=== PATIENT | male | born 1975 | race Caucasian/White ===

== ENCOUNTER → 2019-09-22 | Outpatient (CLI) | payer OTHER ==
[2019-09-22 07:47] LABS: HEMOGLOBIN 16.6 G/DL (13.3-17.7); MEAN PLATELET VOLUME 8.6 FL (7.4-10.4); RED CELL DISTRIBUTION WIDTH 13.4 % (10.0-14.5); WHITE BLOOD COUNT 6.3 10^3/uL (4.3-11.0)
[2019-09-22 07:52] LABS: ALBUMIN 4.3 GM/DL (3.2-4.5); CHLORIDE 105 MMOL/L (98-107); SODIUM 137 MMOL/L (135-145)
[2019-09-22 07:53] LABS: CALCIUM 9.4 MG/DL (8.5-10.1)
[2019-09-22 07:54] LABS: TRIGLYCERIDES 208 MG/DL (<150); VLDL CHOLESTEROL 42 MG/DL (5-40)
[2019-09-22 07:55] LABS: GLUCOSE 102 MG/DL (70-105); TOTAL PROTEIN 7.3 GM/DL (6.4-8.2)
[2019-09-22 07:56] LABS: CARBON DIOXIDE 21 MMOL/L (21-32)
[2019-09-22 07:57] LABS: BILIRUBIN,TOTAL 0.9 MG/DL (0.1-1.0)
[2019-09-22 07:58] LABS: ALKALINE PHOSPHATASE 66 U/L (40-136); CREATININE SERUM 1.13 MG/DL (0.60-1.30); GFR ESTIMATED > 60
[2019-09-22 07:59] LABS: CHOLESTEROL 246 MG/DL (< 200)
[2019-09-22 08:00] LABS: BUN/CREATININE RATIO 13
[2019-09-22 08:01] LABS: HDL CHOLESTEROL 38 MG/DL (40-60)
[2019-09-22 08:02] LABS: ALANINE AMINOTRANSFERASE 32 U/L (0-55)
== END ==
LOC: LAB 07:14
PROVIDERS: ATTEND Family Medicine
DX: I10 Essential (primary) hypertension (principal)
CPT/HCPCS: 36415; 80053; 80061; 85027

== ENCOUNTER → 2020-11-15 | Outpatient (CLI) | payer OTHER ==
[2020-11-15 09:10] LABS: ALBUMIN 4.1 GM/DL (3.2-4.5); CALCIUM 9.3 MG/DL (8.5-10.1); CREATININE SERUM 0.9 MG/DL (0.60-1.30)
== END ==
LOC: LAB 08:26
PROVIDERS: ATTEND Nurse Practitioner
DX: I10 Essential (primary) hypertension (principal); E78.2 Mixed hyperlipidemia
CPT/HCPCS: 36415; 80053; 80061

== ENCOUNTER → 2021-05-20 | Outpatient (CLI) | payer OTHER ==
[2021-05-20 07:44] LABS: ALBUMIN 4.3 GM/DL (3.2-4.5); POTASSIUM 4.2 MMOL/L (3.6-5.0)
[2021-05-20 07:45] LABS: CALCIUM 9.2 MG/DL (8.5-10.1)
[2021-05-20 07:47] LABS: TOTAL PROTEIN 7.1 GM/DL (6.4-8.2)
[2021-05-20 07:48] LABS: BILIRUBIN,TOTAL 1.1 MG/DL (0.1-1.0)
[2021-05-20 07:50] LABS: CREATININE SERUM 0.93 MG/DL (0.60-1.30)
== END ==
LOC: LAB 07:08
PROVIDERS: ATTEND Nurse Practitioner
DX: I10 Essential (primary) hypertension (principal); E78.2 Mixed hyperlipidemia
CPT/HCPCS: 36415; 80053; 80061

== ENCOUNTER → 2021-12-12 | Outpatient (CLI) | payer OTHER ==
[2021-12-12 06:55] LABS: ALBUMIN 4.2 GM/DL (3.2-4.5)
[2021-12-12 06:56] LABS: CALCIUM 9.1 MG/DL (8.5-10.1)
[2021-12-12 06:59] LABS: BILIRUBIN,TOTAL 0.9 MG/DL (0.1-1.0)
[2021-12-12 07:01] LABS: CREATININE SERUM 1.03 MG/DL (0.60-1.30)
== END ==
LOC: LAB 06:30
PROVIDERS: ATTEND Nurse Practitioner
DX: Z01.89 Encounter for other specified special examinations (principal)
CPT/HCPCS: 36415; 80053; 80061

== ENCOUNTER → 2022-06-13 | Outpatient (CLI) | payer OTHER ==
[2022-06-13 07:12] LABS: POTASSIUM 4.1 MMOL/L (3.6-5.0)
[2022-06-13 07:13] LABS: ALBUMIN 4.2 GM/DL (3.2-4.5)
[2022-06-13 07:14] LABS: CALCIUM 9.4 MG/DL (8.5-10.1)
[2022-06-13 07:15] LABS: TOTAL PROTEIN 7.1 GM/DL (6.4-8.2)
[2022-06-13 07:19] LABS: CREATININE SERUM 1.01 MG/DL (0.60-1.30)
== END ==
LOC: LAB 06:36
PROVIDERS: ATTEND Nurse Practitioner
DX: I10 Essential (primary) hypertension (principal); E78.2 Mixed hyperlipidemia
CPT/HCPCS: 36415; 80053; 80061